=== PATIENT | male | born 1960 | race Caucasian/White ===

== ENCOUNTER 2017-04-29 18:55 | Emergency (ER) | payer OTHER ==
[~2017-04-29] VITALS: Ht 177.8 cm; Wt 82.0 kg
[2017-04-29 19:11] VITALS: TEMP 37.1; Ht 177.8 cm; Wt 82.0 kg
[2017-04-29] MEDS ORDERED: HYDROmorphone INJ 1 MG/ML SYR IV STA (22:08)
[2017-04-29] MEDS ORDERED: ACETAMINOPHEN 500 MG TAB PO STA (22:08)
[2017-04-29] MEDS ORDERED: KETOROLAC TROMETHAMINE 30 MG/ML VIAL IV STA (22:08)
[2017-04-29] MEDS ORDERED: BUPR-79 PO (22:23)
[2017-04-29] MEDS ORDERED: LIDOCAINE/EPINEPHRINE 1% 20 ML VIAL INFIL ONE (22:30)
--- NOTE | 2017-04-29 22:42 | EMERGENCY ROOM VISIT NOTE ---
History Report prepared by [facility]: Rafia Savage Under the Supervision of: Dr. Boris Amaro M.D. First contact with patient: 21:28 Chief Complaint: SWELLING TO EXTREMITY Stated Complaint: RT LEG PAIN/SWELLING- S/P SURGERY 04/07 History of Present Illness The patient is a 56 year old male with a past medical history of a right knee arthroscopy who presents to the ED with a cc of worsening right leg swelling beginning today. The patient states that he was discharged from the hospital today from observation for post op infection. He states that he had the knee cleaned and drained on Wednesday, but has filled back up. The patient notes he is on antibiotics and a pain medicine, but neither seems to help. He states that the pain is worse when sitting. Positive groin pain. Source of History: patient Onset: today Position: leg (right) Quality: other (swelling) Timing: worsening Modifying Factors (Worsening): other (sitting) Note: The patient complains of groin pain. Review of Systems See HPI for pertinent positives and negatives. A total of ten systems were reviewed and were otherwise negative. Past Medical & Surgical Medical Problems: (1) Post op infection Surgical Problems: (1) H/O arthroscopic knee surgery Family History No pertinent family history Social History Smoking Status: Former Smoker Marital Status: Housing Status: lives with significant other Current/Historical Medications Scheduled Bupropion (Wellbutrin Sr), 150 MG PO DAILY Tramadol Hcl (Ultram), 50 MG PO Q4H Allergies Coded Allergies: No Known Allergies (Unverified , 04/29/17) Physical Exam Vital Signs Date Time Temp Pulse Resp B/P (MAP) Pulse Ox O2 Delivery O2 Flow Rate FiO2 04/30/17 02:18 83 18 135/75 96 04/30/17 00:58 82 18 108/63 92 Room Air 04/29/17 22:58 84 18 137/84 95 Room Air 04/29/17 19:11 37.1 99 20 155/68 95 Room Air Physical Exam GENERAL: Awake, alert, well-appearing, NAD, in pain HENT: Normocephalic, atraumatic. EYES: Normal conjunctiva. Sclera non-icteric. NECK: Supple. No nuchal rigidity. FROM. RESPIRATORY: CTAB, no rhonchi, wheezing, crackles CARDIAC: RRR, no MRG ABDOMEN: Soft, NTND, BS+ MSK: No chest wall TTP. Right knee swelling, mild erythema, no calor, distal compartments soft. NVI distally. NEURO: GCS 15, CN 2-12 intact, moves all 4s on command SKIN: No rash or jaundice noted. Medical Decision & Procedures ER Provider Diagnostic Interpretation: RIGHT KNEE X-RAY: The results were interpreted by me. Bony elements appear intact. Mild anterior swelling. Laboratory Results 04/29/17 22:32 Red Blood Count 5.05, Mean Corpuscular Volume 87.3, Mean Corpuscular Hemoglobin 30.9, Mean Corpuscular Hemoglobin Concent 35.4, Mean Platelet Volume 9.7, Neutrophils (%) (Auto) 67.6, Lymphocytes (%) (Auto) 15.3, Monocytes (%) (Auto) 16.2, Eosinophils (%) (Auto) 0.5, Basophils (%) (Auto) 0.2, Neutrophils # (Auto ) 5.76, Lymphocytes # (Auto) 1.30, Monocytes # (Auto) 1.38, Eosinophils # (Auto ) 0.04, Basophils # (Auto) 0.02 04/29/17 22:32 Test 04/29/17 22:32 04/29/17 23:35 White Blood Count 8.52 K/uL (4.8-10.8) Red Blood Count 5.05 M/uL (4.7-6.1) Hemoglobin 15.6 g/dL (14.0-18.0) Hematocrit 44.1 % (42-52) Mean Corpuscular Volume 87.3 fL (80-100) Mean Corpuscular Hemoglobin 30.9 pg (25-34) Mean Corpuscular Hemoglobin Concent 35.4 g/dl (32-36) Platelet Count 292 K/uL (130-400) Mean Platelet Volume 9.7 fL (7.4-10.4) Neutrophils (%) (Auto) 67.6 % Lymphocytes (%) (Auto) 15.3 % Monocytes (%) (Auto) 16.2 % Eosinophils (%) (Auto) 0.5 % Basophils (%) (Auto) 0.2 % Neutrophils # (Auto) 5.76 K/uL (1.4-6.5) Lymphocytes # (Auto) 1.30 K/uL (1.2-3.4) Monocytes # (Auto) 1.38 K/uL (0.11-0.59) Eosinophils # (Auto) 0.04 K/uL (0-0.5) Basophils # (Auto) 0.02 K/uL (0-0.2) RDW Standard Deviation 40.6 fL (36.4-46.3) RDW Coefficient of Variation 12.8 % (11.5-14.5) Immature Granulocyte % (Auto) 0.2 % Immature Granulocyte # (Auto) 0.02 K/uL (0.00-0.02) Erythrocyte Sedimentation Rate 67 mm/hr (0-14) Anion Gap 8.0 mmol/L (3-11) Est Creatinine Clear Calc Drug Dose 87.1 ml/min Estimated GFR () 99.0 Estimated GFR (Non- 85.4 BUN/Creatinine Ratio 12.4 (10-20) Calcium Level 9.1 mg/dl (8.5-10.1) Total Bilirubin 0.7 mg/dl (0.2-1) Direct Bilirubin 0.1 mg/dl (0-0.2) Aspartate Amino Transf (AST/SGOT) 22 U/L (15-37) Alanine Aminotransferase (ALT/SGPT) 33 U/L (12-78) Alkaline Phosphatase 60 U/L (45-117) C-Reactive Protein 14.90 mg/dl (0-0.29) Total Protein 8.1 gm/dl (6.4-8.2) Albumin 3.1 gm/dl (3.4-5.0) Synovial Fluid Source KNEE Synovial Fluid Color JONAS Synovial Fluid Appearance CLOUDY Synovial Fluid WBC 87941 /uL (0-200) Synovial Fluid RBC 30887 /uL Synovial Fluid Polynuclear WBCs % 96.4 % Synovial Fluid Mononuclear WBCs % 3.6 % Synovial Fluid Crystals NO CRYSTALS SEEN Synovial Fluid Glucose < 1 mg/dl Synovial Fluid Uric Acid 4.5 mg/dl Laboratory results reviewed by me Medications Administered Medications (Trade) Dose Ordered Sig/Magda Route Start Time Stop Time Status Last Admin Dose Admin Hydromorphone HCl (Dilaudid Inj) 1 mg NOW STAT IV 04/29/17 22:08 04/29/17 22:12 DC 04/29/17 22:32 1 MG Ketorolac Tromethamine (Toradol Inj) 30 mg NOW STAT IV 04/29/17 22:08 04/29/17 22:12 DC 04/29/17 22:32 30 MG Acetaminophen (Tylenol Tab) 1,000 mg NOW STAT PO 04/29/17 22:08 04/29/17 22:12 DC 04/29/17 22:32 1,000 MG Hydromorphone HCl (Dilaudid Inj) 0.5 mg NOW STAT IV 04/29/17 23:40 04/29/17 23:43 DC 04/29/17 23:55 0.5 MG Tramadol HCl (Ultram Home Pack) 1 homepack UD ONCE PO 04/30/17 01:45 04/30/17 01:46 DC 04/30/17 02:00 1 HOMEPACK Procedure Right Knee Arthrocentesis: Informed verbal consent obtained. Time out was performed. Area was prepared in the usual fashion with betadine. Under sterile conditions after sterile draping, a wheel of 1% lidocaine with epinephrine placed with a 22 gauge needle and a total of 6 cc infiltrated to the level of the synovium. 18 guage needle was then introduced into the joint space and approximately 50 cc of reddish fluid was removed from the joint space. Samples were sent to the lab for cell count, gram stain, culture, and crystals analysis. ED Course 2200: The patient was evaluated in room B5. A complete history and physical exam was performed. 0112: I reevaluated the patient. Discussed results and discharge instructions: He verbalized understanding and agreement. The patient is ready for discharge. Medical Decision The patient is a 56 year old male with a past medical history of a right knee arthroscopy who presents to the ED with a cc of worsening right leg swelling beginning today. Differential diagnosis: Etiologies such as fracture, dislocation, neurovascular compromise, compartment syndrome, soft tissue injury, as well as others were entertained. Patient was seen and evaluated the bedside. The patient was fairly uncomfortable was complaining his right knee pain. Patient did have a recent right knee arthroscopy as well as a drainage completed outside hospital. Patient has had a recurrence of his knee effusions which is causing him significant pain. Patient does have mildly swollen and red knee. I did obtain prior records from outside hospital. Patient is otherwise neurovascular intact distally. Of note the patient did have a knee aspiration that did show scant gram-positive cocci. Patient was given Ancef and amoxicillin. His later sensitivities showed that they were sensitive to clindamycin for which she was placed on as an outpatient. Patient did have a repeat he aspirate performed here at the bedside. Patient had 50 mL removed without complication. This was sent off for analysis. He did have 90,000 white blood cells with a neutrophilic predominance. There was blood as well. Patient's knee was placed in an Wallace wrap. Patient's knee film did show a joint effusion without any other obvious signs. Given that the patient is already being treated for a possible septic joint and has appropriate antibiotic therapy being clindamycin, I believe that this is reasonable and they should continue to do so and follow- up with his primary orthopedist. Patient has a normal white blood cell count. The patient is not septic. Gram stain with many WBCs but no organisms. Patient was deemed suitable for outpatient follow-up and treatment at this time. Patient was given additional recommendations and pain medicines to help with pain control. Patient was told to continue the antibiotics and her to help with any sort of possible knee infection that he may have. I do not believe that he requires further inpatient stay given the prior sensitivities and outpatient treatment which is been prescribed. Patient was given strict follow-up, discharge, and return precautions. All questions were answered. Patient was deemed suitable for outpatient follow-up at this time. Patient agreed with the plan of care and was safely discharged home. The chart was completed utilizing [employer] Speech voice recognition software. Grammatical errors, random word insertions, pronoun errors, and incomplete sentences are an occasional consequence of this system due to software limitations, ambient noise, and hardware issues. Any formal questions or concerns about the content, text, or information contained within the body of this dictation should be directly addressed to the physician for clarification. Of note a day later the patient's culture did not grow any bacteria. Medication Reconcilliation Current Medication List: was personally reviewed by me Blood Pressure Screening Patient's blood pressure: Normal blood pressure Blood pressure disposition: Did not require urgent referral Impression Primary Impression: Swelling of right extremity Additional Impression: Knee effusion, right Scribe Attestation The scribe's documentation has been prepared under my direction and personally reviewed by me in its entirety. I confirm that the note above accurately reflects all work, treatment, procedures, and medical decision making performed by me. Departure Information Dispostion Home / Self-Care Prescriptions Tramadol Hcl (ULTRAM) 50 Mg Tab 50 MG PO Q4H, #30 TAB PRN PAIN Prov: Boris Amaro M.D. 04/30/17 Referrals No Doctor, Assigned (PCP) Forms HOME CARE DOCUMENTATION FORM, IMPORTANT VISIT INFORMATION, WORK / SCHOOL INSTRUCTIONS Patient Instructions ED Angélica WRIGHT, Swelling Knee Pain Reduce Additional Instructions Please return to the emergency department if you have worsening or recurrent symptoms not amenable to at-home treatment. Please call for a follow-up appointment with her primary care physician. Please take your medications as prescribed. If you have other concerns and/or complaints please feel free to also call your primary care physician's office or return the ED for further evaluation, management, and treatment. You may take 600 mg Ibuprofen every 6 hours as needed for pain with food for no more than 2 consecutive days. You may take tylenol 650 mg every 6 hours as needed for pain. You may take motrin and tylenol separately or at the same time. You may continue to take the Percocets with these medicines. Please also consider taking the tramadol. Please follow-up with your orthopedic physician. Please continue to ice and had an Wallace wrap to the area. Take your medications as prescribed. If taking an antibiotic consider taking a probiotic and/or eating yogurt, but at the least, please take with food as it can cause upset stomach. If culture results are not available at discharge, if they are positive for concern of infection, you will be informed of the results as soon as they are available. If you were seen between 11pm and 7AM all radiology reads will be re-read by our in house staff. If any major discrepancies are discovered, you will be notified. You have been examined and treated today on an emergency basis only. This is not a substitute for, or an effort to provide, complete comprehensive medical care. It is impossible to recognize and treat all injuries or illnesses in a single emergency department visit. It is therefore important that you follow up closely with [facility], your PCP, and/or your specialist(s). Call as soon as possible for an appointment. Thank you for your time and consideration. I look forward to speaking with you again soon. Please don't hesitate to call us if you have any questions. Problem Qualifiers
[2017-04-29 23:01] LABS: HEMATOCRIT 44.1 % (42-52); HEMOGLOBIN 15.6 g/dL (14.0-18.0); MEAN CELL VOLUME 87.3 fL (80-100); MEAN CORPUSCULAR HEMOGLOBIN 30.9 pg (25-34); MEAN CORPUSCULAR HGB CONC 35.4 g/dl (32-36); MEAN PLATELET VOLUME 9.7 fL (7.4-10.4); PLATELET COUNT 292 K/uL (130-400); RED CELL DISTRIBUTION WIDTH CV 12.8 % (11.5-14.5); RED CELL DISTRIBUTION WIDTH SD 40.6 fL (36.4-46.3); WHITE BLOOD COUNT 8.52 K/uL (4.8-10.8)
[2017-04-29 23:24] LABS: ALBUMIN 3.1 gm/dl (3.4-5.0); CALCIUM 9.1 mg/dl (8.5-10.1); CREATININE 0.99 mg/dl (0.60-1.40)
[2017-04-29 23:26] LABS: TOTAL PROTEIN 8.1 gm/dl (6.4-8.2)
[2017-04-29] MEDS ORDERED: HYDROmorphone INJ 0.5 MG/0.5 ML SYR IV STA (23:40)
[2017-04-30 00:06] LABS: BASO % 0.2 %; BASO ABS # 0.02 K/uL (0-0.2); EOS % 0.5 %; EOS ABS # 0.04 K/uL (0-0.5); IG# 0.02 K/uL (0.00-0.02); LYMPH % 15.3 %; MONO % 16.2 %; MONO ABS # 1.38 K/uL (0.11-0.59); NEUT % 67.6 %; NEUT ABS # 5.76 K/uL (1.4-6.5)
[2017-04-30] MEDS ORDERED: TRAM-453 PO (01:40)
[2017-04-30] MEDS ORDERED: TRAMADOL HCL 50 MG HOME PACK PO ONE (01:45)
[2017-04-30 02:18] VITALS: BP 135/75; PULSE 83; O2SAT 96
--- NOTE | 2017-04-30 07:25 | DIAGNOSTIC IMAGING REPORT ---
RIGHT KNEE 3 VIEWS CLINICAL HISTORY: Right knee erythema and swelling status post arthroplasty. FINDINGS: AP, crosstable lateral, and sunrise views of the right knee are obtained. No prior studies are available for comparison at the time of dictation. The skeletal structures are well mineralized. No fracture is seen. The joint spaces of the knee are well-maintained. There are small marginal osteophytes and patellar enthesophytes. A large fabella is incidentally noted. There is a large joint effusion. Soft tissue edema is present around the knee. IMPRESSION: Soft tissue swelling and large joint effusion with no acute bony abnormality identified. Electronically signed by: Dio Faulkner M.D. 04/30/2017 7:23 AM Dictated Date/Time: 04/30/2017 7:22 AM
--- NOTE | 2017-04-30 13:50 | Pharmacy Progress Note ---
ED Pharmacist Progress Note Date of Service: Apr 30, 2017. Received call from [facility] pharmacy regarding prescription for tramadol. Patient received percocet prescription yesterday. Calling pharmacist wanted to make sure physician was aware and could still dispense the tramadol. Per Patient instructions on discharge/ Dr. Amaro's note -"You may take motrin and tylenol separately or at the same time. You may continue to take the Percocets with these medicines. Please also consider taking the tramadol." Therefore, I told [facility] pharmacist physician is aware the patient had the percocet filled and wanted tramadol prescribed as well.
== END 2017-04-30 02:18 | disposition home or self-care (01) ==
LOC: C.EDB 18:57
DX: M79.89 Other specified soft tissue disorders (principal); M25.461 Effusion, right knee; Z87.891 Personal history of nicotine dependence; Z98.890 Other specified postprocedural states

== ENCOUNTER 2017-05-06 18:13 | Emergency (ER) | payer OTHER ==
[~2017-05-06] VITALS: Ht 177.8 cm; Wt 79.3 kg
[~2017-05-06 18:13] MED LIST: BUPR-79 PO; TRAM-453 PO
[2017-05-06 18:21] VITALS: TEMP 36.6
[2017-05-06] MEDS ORDERED: SODIUM CHLORIDE 0.9% 1000ML 2,000 ML IV STA (18:35)
[2017-05-06] MEDS ORDERED: FENTANYL CITRATE INJ 50 MCG/1 ML 2 ML VIAL IV STA (18:35)
--- NOTE | 2017-05-06 18:55 | EMERGENCY ROOM VISIT NOTE ---
History Report prepared by Serenity: Rian Mackay Under the Supervision of: Dr. Haresh Vargas M.D. First contact with patient: 18:29 Chief Complaint: KNEEPAIN Stated Complaint: R KNEE,PAIN,NAUSEA,CANT EAT,RASH,HEADACHE History of Present Illness The patient is a 56 year old male who presents to the Emergency Room with complaints of constant right knee pain starting on April 16. He currently rates his discomfort as a 4/10 in severity. The patient states that he got a knee surgery to remove some cartilage on April 07, and the stitches came out on the , and then the he has had this knee pain. He states that his knee is now swollen through his leg to his foot. The patient additionally notes that he is having a headache, nausea, and he now has a rash on his stomach and back which is itchy and showed up a week ago. The patient was seen on the in the ED, and he was on clindamycin for infection in the knee which was removed by a surgeon on April 25. The patient notes that his knee has been drained 5 times since the . The patient additionally notes that he was admitted and put on IV antibiotics for 3 days and discharged on the clindamycin for the past 7 days, and he was also put on Bactrim. The states that the patient's knee was infected, though his blood was not infected. He is currently on oxycodone, and he has been unable to eat or sleep, and the swelling has never gone away and improved slightly, though he states that he is unable to walk from the pain. He states that he has gone to physical therapy and pedal a bike this past week. Source of History: patient, spouse/significant other Onset: April 16 Position: knee (right) Symptom Intensity: 4/10 Timing: constant Associated Symptoms: + headache, + nausea, + rash Review of Systems See HPI for pertinent positives and negatives. A total of ten systems were reviewed and were otherwise negative. Past Medical & Surgical Medical Problems: (1) Post op infection Surgical Problems: (1) H/O arthroscopic knee surgery Family History No pertinent family history Social History Smoking Status: Former Smoker Marital Status: Housing Status: lives with significant other Occupation Status: employed Current/Historical Medications Scheduled Aspirin (Kassidy Aspirin), 325 MG PO BID Bupropion (Wellbutrin Sr), 150 MG PO DAILY Clindamycin Hcl (Cleocin), 300 MG PO BID Oxycodone/Acetaminophen 5MG/325MG (Percocet 5MG/325MG), 1 TABLET PO Q4H Sulfa/Trimethoprim (Bactrim Ds 800MG/160MG), 1 TAB PO BID Tramadol Hcl (Ultram), 50 MG PO Q4H Allergies Coded Allergies: No Known Allergies (Unverified , 05/06/17) Physical Exam Vital Signs Date Time Temp Pulse Resp B/P (MAP) Pulse Ox O2 Delivery O2 Flow Rate FiO2 05/06/17 22:05 92 20 119/77 95 05/06/17 19:30 80 05/06/17 19:21 97 Room Air 05/06/17 18:21 36.6 99 17 131/87 97 Room Air Physical Exam GENERAL: Uncomfortable appearing in no distress. HENT: Normocephalic, atraumatic. Dry mucous membranes. Oropharynx unremarkable. EYES: Normal conjunctiva. Sclera non-icteric. NECK: Supple. No nuchal rigidity. FROM. No JVD. RESPIRATORY: Clear to auscultation. CARDIAC: Regular rate, normal rhythm. Extremities warm and well perfused. Pulses equal. ABDOMEN: Soft, non-distended. No tenderness to palpation. No rebound or guarding. No masses. RECTAL: Deferred. MUSCULOSKELETAL: Chest examination reveals no tenderness. The back is symmetrical on inspection without obvious abnormality. There is no CVA tenderness to palpation. No joint edema. LOWER EXTREMITIES: Mild edema to the right knee with full passive range or motion with mild discomfort. Mild warmth. No crepitus. NEURO: Normal sensorium. No sensory or motor deficits noted. SKIN: Scattered raised erythematous blanchable areas on the back, chest and abdomen consistent with hives. Medical Decision & Procedures ER Provider Diagnostic Interpretation: Radiology results as stated below per my review and radiologist interpretation: R KNEE 3 VIEWS CLINICAL HISTORY: 56 years-old Male presenting with pain, swelling, infected knee. TECHNIQUE: Frontal, lateral, and sunrise views of the right knee were obtained. COMPARISON: 04/29/2017. FINDINGS: Persistent large knee joint effusion. No osseous erosion is radiographically evident. Mild osteophytosis noted in the lateral and patellofemoral compartments. Trace osteophytosis may be present in the medial compartment. No joint space loss. No acute fracture or malalignment. No patellar subluxation. IMPRESSION: 1. Large knee joint effusion. Sterility cannot be further confirmed. 2. No radiographic evidence of septic arthritis or osteomyelitis. 3. Tricompartmental degenerative changes most severe in the lateral and patellofemoral compartments. 4. No acute osseous injury. Electronically signed by: Geovani Scanlon M.D. 05/06/2017 7:32 PM Dictated Date/Time: 05/06/2017 7:30 PM SINGLE VIEW CHEST CLINICAL HISTORY: Fever. Sepsis. FINDINGS: An AP, portable, upright chest radiograph is obtained. No prior studies are available for comparison at the time of dictation. The cardiomediastinal silhouette is unremarkable. The lungs and pleural spaces are clear. No pneumothorax is seen. The bony thorax is grossly intact. IMPRESSION: No active disease in the chest. Electronically signed by: Dio Faulkner M.D. 05/06/2017 7:26 PM Dictated Date/Time: 05/06/2017 7:26 PM Laboratory Results 05/06/17 19:00 Red Blood Count 5.10, Mean Corpuscular Volume 86.3, Mean Corpuscular Hemoglobin 30.6, Mean Corpuscular Hemoglobin Concent 35.5, Mean Platelet Volume 9.1, Neutrophils (%) (Auto) 60.8, Lymphocytes (%) (Auto) 24.4, Monocytes (%) (Auto) 11.1, Eosinophils (%) (Auto) 3.1, Basophils (%) (Auto) 0.3, Neutrophils # (Auto ) 4.46, Lymphocytes # (Auto) 1.79, Monocytes # (Auto) 0.81, Eosinophils # (Auto ) 0.23, Basophils # (Auto) 0.02 05/06/17 19:00 Test 05/06/17 18:27 05/06/17 19:00 05/06/17 20:45 Influenza Type A Antigen Neg for Influ A (NEG) Influenza Type B Antigen Neg for Influ B (NEG) White Blood Count 7.33 K/uL (4.8-10.8) Red Blood Count 5.10 M/uL (4.7-6.1) Hemoglobin 15.6 g/dL (14.0-18.0) Hematocrit 44.0 % (42-52) Mean Corpuscular Volume 86.3 fL (80-100) Mean Corpuscular Hemoglobin 30.6 pg (25-34) Mean Corpuscular Hemoglobin Concent 35.5 g/dl (32-36) Platelet Count 394 K/uL (130-400) Mean Platelet Volume 9.1 fL (7.4-10.4) Neutrophils (%) (Auto) 60.8 % Lymphocytes (%) (Auto) 24.4 % Monocytes (%) (Auto) 11.1 % Eosinophils (%) (Auto) 3.1 % Basophils (%) (Auto) 0.3 % Neutrophils # (Auto) 4.46 K/uL (1.4-6.5) Lymphocytes # (Auto) 1.79 K/uL (1.2-3.4) Monocytes # (Auto) 0.81 K/uL (0.11-0.59) Eosinophils # (Auto) 0.23 K/uL (0-0.5) Basophils # (Auto) 0.02 K/uL (0-0.2) RDW Standard Deviation 39.7 fL (36.4-46.3) RDW Coefficient of Variation 12.4 % (11.5-14.5) Immature Granulocyte % (Auto) 0.3 % Immature Granulocyte # (Auto) 0.02 K/uL (0.00-0.02) Erythrocyte Sedimentation Rate 80 mm/hr (0-14) Anion Gap 3.0 mmol/L (3-11) Est Creatinine Clear Calc Drug Dose 84.5 ml/min Estimated GFR () 95.5 Estimated GFR (Non- 82.4 BUN/Creatinine Ratio 17.3 (10-20) Lactic Acid Level 0.9 mmol/L (0.4-2.0) Calcium Level 9.0 mg/dl (8.5-10.1) Total Bilirubin 0.2 mg/dl (0.2-1) Direct Bilirubin < 0.1 mg/dl (0-0.2) Aspartate Amino Transf (AST/SGOT) 39 U/L (15-37) Alanine Aminotransferase (ALT/SGPT) 57 U/L (12-78) Alkaline Phosphatase 72 U/L (45-117) C-Reactive Protein 6.72 mg/dl (0-0.29) Total Protein 8.4 gm/dl (6.4-8.2) Albumin 2.9 gm/dl (3.4-5.0) Urine Color YELLOW Urine Appearance CLEAR (CLEAR) Urine pH 5.0 (4.5-7.5) Urine Specific [place] 1.017 (1.000-1.030) Urine Protein NEG (NEG) Urine Glucose (UA) NEG (NEG) Urine Ketones NEG (NEG) Urine Occult Blood NEG (NEG) Urine Nitrite NEG (NEG) Urine Bilirubin NEG (NEG) Urine Urobilinogen NEG (NEG) Urine Leukocyte Esterase NEG (NEG) Laboratory results reviewed by me Medications Administered Medications (Trade) Dose Ordered Sig/Magda Route Start Time Stop Time Status Last Admin Dose Admin Sodium Chloride 2,000 ml @ 999 mls/hr Q2H1M STAT IV 05/06/17 18:35 05/06/17 20:35 DC 05/06/17 18:35 999 MLS/HR Diphenhydramine HCl (Benadryl Inj) 25 mg NOW STAT IV 05/06/17 20:09 05/06/17 20:10 DC 05/06/17 20:20 25 MG ED Course 1827: The patient was evaluated in room B7. A complete history and physical exam was performed. 2024: I discussed the patient's case with Dr. Lim - [facility], and he does not feel comfortable taking someone else's infection, but he is available for a second opinion. He agrees that there is no indication for admission. 2016: I reevaluated the patient, and I had a long discussion about the treatment plan for the patient. He is going to follow up tomorrow, and he will be discharged home. Medical Decision I reviewed the patient's past medical history, medications, and the nursing notes as described above. Differential diagnoses include: septic knee, fracture, soft tissue injury, bacteremia The patient is a 56 y/o gentleman with pmxh of known septic knee s/p elective knee surgery who presents to the emergency department with persistent of right knee pain and swelling in the setting of multiple evaluations over the past few weeks, which included recent admission to [facility] for washout by his surgeon, Dr. Camara and IV abx per HPI. Patient was discharged on 04/29 and came [place] ED that same day for persistent pain. Knee was tapped and synovial fluid with wbc 91K with subsequent cx growing COAG NEG STAPH, sensitive to bactrim and clindamycin, patient's current medications. Of note, patient did see his surgeon's PA for f/u have his ED visit and was reassured with plan to continue with his oral abx and his physical therapy where he has been able to use a stationary bicycle. Of note, patient comes to the [place] ED again for lack of improvement in his pain and swelling and not necessarily any worsening, and they were hoping to establish care with a new orthopedist for a "second opinion ". On arrival the patient is in NAD, AFVSS. Appears clinically dry. On exam the patient has FROM passively with minimal pain. Moderate edema with warmth. No crepitus. ESR (increased from prior) and CRP (decreased from prior) elevated however in the setting of known septic knee undergoing treatment. WBC still wnl. Xray stable with effusion, no osseus involvement. Given patient's reassuring exam with FROM, AF, wbc wnl under appropriate abx coverage per recent synovial cx, no indication for admission at this time. Case d/w Dr. Lim, [facility], who is on-call and agrees that it is not apparent that the patient needs admission. Agreeable to provide patient with second opinion and so patient to call office in AM for appointment tomorrow with available surgeon. Patient and his were updated on plan and initially became tearful adamant that he be admitted. I did further explain his reassuring w/u at this time and that without clear indication for admission, admission to the hospital may carry it's own risks. Nevertheless, I did offer the patient the option to pursue admission if they felt they could not continue to manage at home. However, they declined and were agreeable with outpatient f/u, given that they could be seen tomorrow. Regarding the patient's hives and unclear chronicity regarding his antibiotics, I am reluctant to make any changes at this time given he is on appropriate coverage. Pruritis and hives improved after Benadryl, thus will manage sx for now. Findings and plan for follow-up reviewed with patient. Patient agreeable and d/c'd per discharge instructions. Medication Reconcilliation Current Medication List: was personally reviewed by me Blood Pressure Screening Patient's blood pressure: Normal blood pressure Consults Time Called: 2008 Consulting Physician: Sr. Lim Returned Call: 2024 I discussed the patient's case with Dr. Lim - [facility], and he does not feel comfortable taking someone else's infection, but he is available for a second opinion. He agrees that there is no indication for admission. Impression Primary Impression: Septic arthritis of knee, right Scribe Attestation The scribe's documentation has been prepared under my direction and personally reviewed by me in its entirety. I confirm that the note above accurately reflects all work, treatment, procedures, and medical decision making performed by me. Departure Information Dispostion Home / Self-Care Referrals No Doctor, Assigned (PCP) Geovani Lim M.D. Forms HOME CARE DOCUMENTATION FORM, IMPORTANT VISIT INFORMATION Patient Instructions Knee Pain, My [facility] Additional Instructions Please follow up with [facility] tomorrow for re-evaluation. When you call in the morning they will assign you to the available provider. Your pain is due to your known knee infection, which per your recent cultures is currently being treated with the appropriate antibiotics. Otherwise, your exam, lab results, and xray are stable did not show signs of worsening or emergent condition at this time. Continue your current medications as prescribed. Benadryl as needed for itching and rash. It is unclear if your rash related to your antibiotics at this time, however given that your antibiotics are appropriate per your last culture we will continue them at this time. However, if you develops any other symptoms such as a worsening rash, facial swelling, shortness of breath return to the emergency department. Drink plenty of fluids to ensure hydration. Return to the emergency department for worsening symptoms as described in the accompanying instructions such as fevers, increases pain or swelling, inability to bend your knee.
[2017-05-06 19:14] VITALS: Ht 177.8 cm; Wt 79.3 kg
[2017-05-06 19:21] VITALS: O2SAT 97
--- NOTE | 2017-05-06 19:28 | DIAGNOSTIC IMAGING REPORT ---
SINGLE VIEW CHEST CLINICAL HISTORY: Fever. Sepsis. FINDINGS: An AP, portable, upright chest radiograph is obtained. No prior studies are available for comparison at the time of dictation. The cardiomediastinal silhouette is unremarkable. The lungs and pleural spaces are clear. No pneumothorax is seen. The bony thorax is grossly intact. IMPRESSION: No active disease in the chest. Electronically signed by: Dio Faulkner M.D. 05/06/2017 7:26 PM Dictated Date/Time: 05/06/2017 7:26 PM
[2017-05-06 19:30] LABS: BASO % 0.3 %; BASO ABS # 0.02 K/uL (0-0.2); EOS % 3.1 %; EOS ABS # 0.23 K/uL (0-0.5); HEMOGLOBIN 15.6 g/dL (14.0-18.0); IG# 0.02 K/uL (0.00-0.02); LYMPH % 24.4 %; LYMPH ABS # 1.79 K/uL (1.2-3.4); MEAN CELL VOLUME 86.3 fL (80-100); MEAN CORPUSCULAR HEMOGLOBIN 30.6 pg (25-34); MEAN CORPUSCULAR HGB CONC 35.5 g/dl (32-36); MEAN PLATELET VOLUME 9.1 fL (7.4-10.4); MONO % 11.1 %; MONO ABS # 0.81 K/uL (0.11-0.59); NEUT % 60.8 %; NEUT ABS # 4.46 K/uL (1.4-6.5); PLATELET COUNT 394 K/uL (130-400); RED CELL DISTRIBUTION WIDTH CV 12.4 % (11.5-14.5); RED CELL DISTRIBUTION WIDTH SD 39.7 fL (36.4-46.3); WHITE BLOOD COUNT 7.33 K/uL (4.8-10.8)
--- NOTE | 2017-05-06 19:33 | DIAGNOSTIC IMAGING REPORT ---
R KNEE 3 VIEWS CLINICAL HISTORY: 56 years-old Male presenting with pain, swelling, infected knee. TECHNIQUE: Frontal, lateral, and sunrise views of the right knee were obtained. COMPARISON: 04/29/2017. FINDINGS: Persistent large knee joint effusion. No osseous erosion is radiographically evident. Mild osteophytosis noted in the lateral and patellofemoral compartments. Trace osteophytosis may be present in the medial compartment. No joint space loss. No acute fracture or malalignment. No patellar subluxation. IMPRESSION: 1. Large knee joint effusion. Sterility cannot be further confirmed. 2. No radiographic evidence of septic arthritis or osteomyelitis. 3. Tricompartmental degenerative changes most severe in the lateral and patellofemoral compartments. 4. No acute osseous injury. Electronically signed by: Geovani Scanlon M.D. 05/06/2017 7:32 PM Dictated Date/Time: 05/06/2017 7:30 PM
[2017-05-06] MEDS ORDERED: OXYC-57 PO (19:42)
[2017-05-06] MEDS ORDERED: CLIN300C2 PO (19:43)
[2017-05-06] MEDS ORDERED: SULF800T23 PO (19:44)
[2017-05-06] MEDS ORDERED: [UNRECOGNIZED DRUG - CODE] PO (19:45)
[2017-05-06 19:49] LABS: ALBUMIN 2.9 gm/dl (3.4-5.0); ALT/SGPT 57 U/L (12-78); AST/SGOT 39 U/L (15-37); BLOOD UREA NITROGEN 18 mg/dl (7-18); CARBON DIOXIDE 29 mmol/L (21-32); CREATININE 1.02 mg/dl (0.60-1.40); GLUCOSE 108 mg/dl (70-99); POTASSIUM 4.4 mmol/L (3.5-5.1); SODIUM 133 mmol/L (136-145)
[2017-05-06 19:51] LABS: ALKALINE PHOSPHATASE 72 U/L (45-117); TOTAL PROTEIN 8.4 gm/dl (6.4-8.2)
[2017-05-06] MEDS ORDERED: DiphenhydrAMINE HCL 50 MG/ML VIAL IV STA (20:09)
[2017-05-06 20:11] LABS: INFLUENZA B ANTIGEN Neg for Influ B (NEG)
[2017-05-06 22:05] VITALS: BP 119/77; PULSE 92; O2SAT 95
== END 2017-05-06 22:07 | disposition home or self-care (01) ==
LOC: C.EDB 18:14
DX: M00.861 Arthritis due to other bacteria, right knee (principal); Z98.890 Other specified postprocedural states; L50.9 Urticaria, unspecified; Z79.82 Long term (current) use of aspirin; Z87.891 Personal history of nicotine dependence